=== PATIENT | female | born 1975 | race African-American/Black ===

== ENCOUNTER 2017-04-04 12:00 | Emergency (ER) | payer SELFPAY ==
[2017-04-04 12:12] VITALS: BP 107/66; PULSE 72; TEMP 98.2; BMI 19.2
--- NOTE | 2017-04-04 12:53 | PDOC ---
History of Present Illness - General Chief Complaint: Abscess Boil Stated Complaint: ALLERGIC REACTION Time Seen by Provider: 04/04/17 12:33 History Source: Patient Exam Limitations: No Limitations - History of Present Illness Initial Comments: 04/04/17 12:48 41-year-old female with no past medical history presents the ED with worsening lump to the right side of her neck. Patient also states has a developing one to her right suprapubic region. Patient denies fever, chills, but does state the one on her neck started to drain this morning. 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 Timing/Duration: reports: getting worse Severity: Yes: mild Location: reports: other Respiratory Risk Factors: reports: no cause identified Associated Symptoms: reports: swelling/mass/lumps Past History - Travel Traveled outside of the country in the last 30 days: No Close contact w/someone who was outside of country & ill: No - Past Medical History Allergies/Adverse Reactions: Allergies Allergy/AdvReac Type Severity Reaction Status Date / Time No Known Allergies Allergy Verified 04/04/17 12:09 Home Medications: Ambulatory Orders NK [No Known Home Medication] 04/04/17 Kidney Stones: Yes - Immunization History Immunization Up to Date: No - Psycho/Social/Smoking Cessation Hx Anxiety: No Suicidal Ideation: No Smoking Status: Yes Smoking History: Current every day smoker Have you smoked in the past 12 months: Yes Number of Cigarettes Smoked Daily: 10 Information on smoking cessation initiated: Yes 'Breaking Loose' booklet given: 04/04/17 Hx Alcohol Use: No Drug/Substance Use Hx: No Substance Use Type: None Patient Lives Alone: No Review of Systems - Review of Systems Able to Perform ROS?: No Constitutional: No: Symptoms Reported HEENTM: No: Symptoms Reported Respiratory: No: Symptoms reported Integumentary: Yes: Erythema, Lumps *Physical Exam - Vital Signs Last Vital Signs Temp Pulse Resp BP Pulse Ox 98.2 F 72 18 107/66 100 04/04/17 12:09 04/04/17 12:09 04/04/17 12:09 04/04/17 12:09 04/04/17 12:09 - Physical Exam General Appearance: Yes: Nourished, Appropriately Dressed. No: Apparent Distress Lymphatic: negative: Adenopathy Integumentary: positive: Other (noted 2 x 2 raised abscess to the right cervical region below the mandibular angle. Surrounding skin intact. No palpable fluctuance. Abscess currently draining purulent fluid. noted 1 x 1 cm raised papule to the upper right mons pubis. no palpable fluctuance. No drainage. surrounding skin intact.) Medical Decision Making - Medical Decision Making 04/04/17 12:51 Patient with noted draining abscess to the right neck and early abscess to the right mons pubis. Right neck swabbed and will culture sent. Patient be placed on Bactrim along with supportive care such as warm soaks to the affected areas. *DC/Admit/Observation/Transfer Diagnosis at time of Disposition: Abscess - Discharge Dispostion Disposition: HOME Condition at time of disposition: Good - Patient Instructions Printed Discharge Instructions: DI for Skin Abscess Additional Instructions: Take medication as prescribed and apply warm soaks 4 times a day for at least 15 minutes of constant heat. If symptoms do not improve in the next 3 days please return to ED otherwise follow-up with your primary care physician.
== END 2017-04-04 13:02 | disposition home or self-care (01) ==
LOC: JERFT 12:00
DX: L02.11 Cutaneous abscess of neck (principal); L02.215 Cutaneous abscess of perineum; F17.210 Nicotine dependence, cigarettes, uncomplicated
CPT/HCPCS: 87070; 87186; 87205; 99281-25